=== PATIENT | male | born 1990 | race Caucasian/White ===

== ENCOUNTER 2022-10-03 11:11 | Emergency (ER) | payer MEDICAID ==
[~2022-10-03] VITALS: Ht 180.3 cm; Wt 129.6 kg
[2022-10-03] MEDS ORDERED: PredniSONE 20 MG TABLET PO ONE (12:15)
[2022-10-03] MEDS ORDERED: DiphenhydrAMINE HCL 50 MG/ML VIAL IM ONE (12:15)
[2022-10-03] MEDS ORDERED: DIPH50CA37 PO (12:58)
[2022-10-03 13:15] VITALS: BP 110/79
== END 2022-10-03 13:30 | disposition home or self-care (01) ==
LOC: EMS 11:24
DX: T78.40XA Allergy, unspecified, initial encounter (principal); X58.XXXA Exposure to other specified factors, initial encounter
CPT/HCPCS: 99283; 96372; J1200; J7512